=== PATIENT | female | born 1975 | race Caucasian/White ===

== ENCOUNTER 2020-07-15 10:40 | Emergency (ER) | payer OTHER ==
[2020-07-15 10:50] VITALS: BP 122/81; PULSE 61; TEMP 98.5; BMI 29.2
[2020-07-15] MEDS ORDERED: LIDOCAINE 5% TOPICAL PATCH TP ONE (11:17)
[2020-07-15] MEDS ORDERED: KETOROLAC TROMETHAMINE 30 MG/1 ML VIAL IM ONE (11:17)
[2020-07-15] MEDS ORDERED: LIDOCAINE 5% TOPICAL PATCH ONE (11:23)
[2020-07-15] MEDS ORDERED: KETOROLAC TROMETHAMINE 30 MG/1 ML VIAL ONE (11:23)
[2020-07-15] MEDS ORDERED: LIDOCAINE PATCH REMOVAL MC SCH (22:00)
== END 2020-07-15 12:13 | disposition home or self-care (01) ==
LOC: FER 10:40
PROC: 3E0233Z Introduction of Anti-inflammatory into Muscle, Percutaneous Approach (ICD-10-PCS; principal; 2020-07-15)
DX: M54.2 Cervicalgia (principal)
CPT/HCPCS: 99284-25